=== PATIENT | male | born 1960 | race Two or more races ===

== ENCOUNTER 2016-11-20 20:39 | Inpatient (IN) | payer MEDICAID ==
[~2016-11-20] VITALS: Ht 167.6 cm; Wt 113.1 kg
[~2016-11-20 20:39] MED LIST: ENAL10TA86; ERGO1CAP6; FAMO-12; IBU800T; METF-316
[2016-11-20 22:32] LABS: Basophils # (auto) 0.1 uL; DEFINITIVE VIEW TRANSMISSION; Eosinophils # (auto) 1.1 uL; Eosinophils % (auto) 9.7 % (0.0-7.0); Hematocrit 52.7 % (41.0-53.0); Hemoglobin 16.5 g/dL (13.5-17.5); Lymphocytes # (auto) 3.7 uL; Lymphocytes % (auto) 33.7 % (10.0-50.0); Mean Corpuscular Hemoglobin 26.5 pg (28.0-32.0); Mean Corpuscular Hgb Conc. 31.3 g/dL (32.0-36.0); Mean Corpuscular Volume 84.5 fL (80.0-100.0); Mean Platelet Volume 8.5 fL (7.4-10.4); Monocytes % (auto) 9.4 % (0.0-12.0); Neutrophils # (auto) 5.1 uL; Neutrophils % (auto) 46.2 % (37.0-80.0); Platelet Count (auto) 234 10^3/uL (140-450); Red Cell Distribution Width 14.2 % (11.6-16.0)
[2016-11-20 23:04] LABS: Albumin 3.7 g/dL (3.4-5.0); Calcium 9.3 mg/dL (8.5-10.1); Magnesium 2.3 mg/dL (1.6-2.6); Potassium 3.9 mmol/L (3.5-5.1)
[2016-11-20 23:07] LABS: Bilirubin, Total 0.3 mg/dL (0.2-1.0); Total Protein 7.8 g/dL (6.4-8.2)
[2016-11-20] MEDS ORDERED: LOSA50TA6 PO (23:49)
[2016-11-20] MEDS ORDERED: TRAM50TA2 PO (23:51)
[2016-11-20] MEDS ORDERED: CANA300T OR (23:51)
[2016-11-20] MEDS ORDERED: AML5T PO (23:51)
[2016-11-21] MEDS ORDERED: ONDANSETRON HCL 4 MG/2 ML VIAL IV ONE
[2016-11-21] MEDS ORDERED: MORPHINE SULFATE 4 MG/ML SYRG IV ONE
[2016-11-21] MEDS ORDERED: IOHEXOL 350 MG/ML 100ML IJ ONE (00:13)
[2016-11-21 00:34] LABS: INR 1.03 (0.9-1.15); Prothrombin Time 10.6 sec (9.37-12.3)
[2016-11-21] MEDS ORDERED: ASPirin 81 mg TAB PO ONE (02:00)
[2016-11-21] MEDS ORDERED: ACETAMINOPHEN 325 MG TAB PO PRN (04:45)
[2016-11-21] MEDS ORDERED: DEXTROSE (50%) 50ML SYRG IV PRN (04:45)
[2016-11-21] MEDS ORDERED: NITROGLYCERIN 0.4 MG SL TAB SL PRN (04:45)
[2016-11-21] MEDS ORDERED: ONDANSETRON HCL 4 MG/2 ML VIAL IV PRN (04:45)
[2016-11-21] MEDS ORDERED: MORPHINE SULF INJ 2 MG/ML SYRINGE 1ML IV PRN (04:45)
[2016-11-21] MEDS: ACCU-CHEK COMFORT CURVE STRIP VI SCH ×3 (06:00→18:10)
[2016-11-21] MEDS: InsuLIN REG 1unit/0.01ml Soln (100units/ml) SC SCH ×3 (06:00→18:14)
[2016-11-21 08:00] VITALS: BP 131/71
[2016-11-21] MEDS: amLODIPine BESYLATE 5 MG TAB PO SCH ×2 (10:19→22:03)
[2016-11-21] MEDS: FAMOTIDINE 20 MG TAB PO SCH ×2 (10:20→22:05)
[2016-11-21] MEDS: LOSARTAN POTASSIUM 50 MG TAB PO SCH (10:20)
[2016-11-21] MEDS: ENOXAPARIN SOD 40 MG/0.4 ML SYRINGE SC SCH (10:20)
[2016-11-21 12:00] VITALS: BP 126/70
[2016-11-21] MEDS: HYDROcodone-ACET 5/325MG TAB PO PRN (13:25)
[2016-11-21 17:00] VITALS: BP 137/79
[2016-11-21] MEDS: LEVOFLOXACIN 500 MG TAB PO SCH (17:55)
[2016-11-21] MEDS: ALBUTEROL SULF 2.5 MG/0.5ML(0.5%) NEB SOLN NEB SCH (18:24)
[2016-11-21 22:00] VITALS: BP 116/63
[2016-11-21] MEDS: ATORVASTATIN 20 MG TAB PO SCH (22:03)
[2016-11-22] MEDS: ACCU-CHEK COMFORT CURVE STRIP VI SCH ×4 (00:06→17:55)
[2016-11-22] MEDS: InsuLIN REG 1unit/0.01ml Soln (100units/ml) SC SCH ×4 (00:08→17:55)
[2016-11-22 05:00] VITALS: BP 133/87
[2016-11-22 06:02] LABS: Basophils # (auto) 0.1 uL; Basophils % (auto) 0.6 % (0.0-2.0); DEFINITIVE VIEW TRANSMISSION; Eosinophils % (auto) 10.2 % (0.0-7.0); Hematocrit 48.4 % (41.0-53.0); Hemoglobin 15.1 g/dL (13.5-17.5); Lymphocytes # (auto) 3.6 uL; Lymphocytes % (auto) 38.3 % (10.0-50.0); Mean Corpuscular Hemoglobin 26.5 pg (28.0-32.0); Mean Corpuscular Hgb Conc. 31.3 g/dL (32.0-36.0); Mean Corpuscular Volume 84.9 fL (80.0-100.0); Mean Platelet Volume 8.9 fL (7.4-10.4); Monocytes # (auto) 0.9 uL; Neutrophils # (auto) 3.8 uL; Neutrophils % (auto) 40.9 % (37.0-80.0); Platelet Count (auto) 215 10^3/uL (140-450); Red Cell Distribution Width 14.2 % (11.6-16.0); White Blood Cell 9.4 10^3/uL (4.4-10.8)
[2016-11-22 06:34] LABS: Potassium 3.7 mmol/L (3.5-5.1)
[2016-11-22 06:39] LABS: Albumin 3.1 g/dL (3.4-5.0); BUN/Creatinine Ratio 20.3; Calcium 8.9 mg/dL (8.5-10.1)
[2016-11-22 06:42] LABS: Bilirubin, Total 0.4 mg/dL (0.2-1.0); Total Protein 6.8 g/dL (6.4-8.2)
[2016-11-22] MEDS: ALBUTEROL SULF 2.5 MG/0.5ML(0.5%) NEB SOLN NEB SCH ×5 (06:50→20:07)
[2016-11-22 08:00] VITALS: BP 132/69
[2016-11-22 09:00] VITALS: BP 132/69
[2016-11-22] MEDS ORDERED: IOHEXOL 350 MG/ML 100ML IJ ONE (09:14)
[2016-11-22] MEDS ORDERED: VERAPAMIL 2.5MG/ML INJ 2ML VIAL IV ONE (09:17)
[2016-11-22] MEDS: LOSARTAN POTASSIUM 50 MG TAB PO SCH (11:25)
[2016-11-22] MEDS: LEVOFLOXACIN 500 MG TAB PO SCH (11:25)
[2016-11-22] MEDS: ENOXAPARIN SOD 40 MG/0.4 ML SYRINGE SC SCH (11:25)
[2016-11-22] MEDS: FAMOTIDINE 20 MG TAB PO SCH ×2 (11:25→22:13)
[2016-11-22] MEDS: amLODIPine BESYLATE 5 MG TAB PO SCH ×2 (11:26→22:14)
[2016-11-22 13:00] VITALS: BP 129/75
[2016-11-22 17:00] VITALS: BP 127/72
[2016-11-22] MEDS: HYDROcodone-ACET 5/325MG TAB PO PRN ×2 (18:05→22:24)
[2016-11-22 22:05] VITALS: BP 114/65
[2016-11-22] MEDS: ATORVASTATIN 20 MG TAB PO SCH (22:14)
[2016-11-23] MEDS: ACCU-CHEK COMFORT CURVE STRIP VI SCH ×3 (00:17→12:02)
[2016-11-23] MEDS: InsuLIN REG 1unit/0.01ml Soln (100units/ml) SC SCH ×3 (00:18→12:00)
[2016-11-23 05:01] VITALS: BP 130/74
[2016-11-23] MEDS: ALBUTEROL SULF 2.5 MG/0.5ML(0.5%) NEB SOLN NEB SCH ×3 (07:52→13:37)
[2016-11-23 08:00] VITALS: BP 123/81
[2016-11-23 09:00] VITALS: BP 123/99
[2016-11-23] MEDS: ENOXAPARIN SOD 40 MG/0.4 ML SYRINGE SC SCH (10:48)
[2016-11-23] MEDS: FAMOTIDINE 20 MG TAB PO SCH (10:48)
[2016-11-23] MEDS: LEVOFLOXACIN 500 MG TAB PO SCH (10:48)
[2016-11-23] MEDS: amLODIPine BESYLATE 5 MG TAB PO SCH (10:50)
[2016-11-23] MEDS: LOSARTAN POTASSIUM 50 MG TAB PO SCH (10:50)
[2016-11-23 14:21] VITALS: BP 131/76
== END 2016-11-23 16:10 | disposition home or self-care (01) | DRG 203 ==
LOC: ER 20:49 → TELE 20:50 → TELE-WESTW 11-21 06:45
PROVIDERS: ADMIT Nurse Practitioner; ATTEND Internal Medicine Pulmonary Disease
DX: M94.0 Chondrocostal junction syndrome [Tietze] (principal); I11.9 Hypertensive heart disease without heart failure; Z68.41 Body mass index [BMI] 40.0-44.9, adult; E66.01 Morbid (severe) obesity due to excess calories; E11.9 Type 2 diabetes mellitus without complications; E78.5 Hyperlipidemia, unspecified; G44.209 Tension-type headache, unspecified, not intractable; J20.9 Acute bronchitis, unspecified; J42 Unspecified chronic bronchitis; J45.909 Unspecified asthma, uncomplicated; Z82.49 Family history of ischemic heart disease and other diseases of the circulatory system; Z87.891 Personal history of nicotine dependence; Z87.11 Personal history of peptic ulcer disease
CPT/HCPCS: 36415; 70450; 71020; 71260; 75574; 80053; 82962; 83735; 84484; 85025; 85610; 93005; 93306; 94640; 96374; 96375; J1815; J2405

== ENCOUNTER 2019-09-12 14:58 | Emergency (ER) | payer MEDICAID ==
[~2019-09-12] VITALS: Ht 162.6 cm; Wt 90.7 kg
[~2019-09-12 14:58] MED LIST changes: +AML5T PO; +CANA300T OR; -ENAL10TA86; -FAMO-12; +LOSA-69 PO; -METF-316; +TRAM50TA2 PO
[2019-09-12 16:21] VITALS: BP 109/61
[2019-09-12] MEDS ORDERED: IPRATROPIUM BROM 0.5 MG/2.5ML INH SOL NEB ONE (16:45)
[2019-09-12] MEDS ORDERED: ALBUTEROL SULF 2.5 MG/0.5ML(0.5%) NEB SOLN NEB ONE (16:45)
[2019-09-12] MEDS ORDERED: LIDOCAINE 1% HCL (LOCAL ANESTH.) INJ 20ML MDV ONE (16:52)
[2019-09-12] MEDS ORDERED: cefTRIAXone SOD 1,000 MG VL IM ONE (17:00)
== END 2019-09-12 17:46 | disposition home or self-care (01) ==
LOC: ER 14:58
DX: J03.90 Acute tonsillitis, unspecified (principal); J42 Unspecified chronic bronchitis; J45.909 Unspecified asthma, uncomplicated; E11.9 Type 2 diabetes mellitus without complications; E78.5 Hyperlipidemia, unspecified; I10 Essential (primary) hypertension
CPT/HCPCS: 71046; 94640; 96372; 99283; J0696; J2001; J7611; J7644